=== PATIENT | female | born 1990 | race Caucasian/White ===

== ENCOUNTER 2024-01-24 10:40 | Emergency (ER) | payer OTHER, SELFPAY ==
[2024-01-24 10:54] VITALS: BP 100/71
[2024-01-24 11:41] VITALS: BMI 20.9
[2024-01-24 12:11] VITALS: BP 92/63
--- NOTE | 2024-01-24 12:36 | ED.GENMED ---
History of Present Illness
General
Chief Complaint: Skin Problem
Source: patient
Exam Limitations: none
Time Seen by Provider: 01/24/24 12:19
History of Present Illness
History of Present Illness:
33-year-old female presents with onset of fatigue myalgias headache back pain nausea around the same time she noticed an insect bite on the right knee last evening. She notes chills. She is healthy otherwise. She saw her family doctor today and
she was sent for further evaluation. She notes a sore insect bite to the medial right knee. She tried ibuprofen last night. No other complaints at this time
Phy Exam
Physical Exam
Physical Exam:
General: Well-appearing female no acute respiratory distress
HEENT: Normocephalic atraumatic
Heart: Regular rate and rhythm no murmurs
Lungs: Clear no wheeze or rales
Abdomen: Soft nontender nondistended guarding rebound normal bowel sounds mild bilateral costovertebral angle tenderness
Extremities: No cyanosis or edema
Skin: Circular area of erythema slightly tender to the touch with a dark spot in the middle. This is not an insect or tick remaining. This is slightly pruritic as well.
Course
Orders/Labs/Results
Orders:
Orders
01/24/24 12:30
0.9% Sodium Chloride 1000 ml [Nss] 1,000 ml IV BOLUS
Ketorolac [Toradol] 15 mg IV NOW STA
01/24/24 12:48
COVID-19 Antigen Urgent
Source: Nasal Swab
Complete Blood Count/With Diff Urgent
Comprehensive Metabolic Panel Urgent
Lyme Progressive Urgent
01/24/24 12:49
Urinalysis Reflex To Culture Urgent
Date Specimen was Collected: 01/24/24
Time Specimen was Collected: 12:40
Abnormal Lab Results
01/24/24
12:48
WBC 4.5 L 10^3/uL
(4.8-10.8)
Absolute Lymphs (auto) 0.8 L 10^3/uL
(1.2-3.4)
Lymphocytes % 17.3 L %
(20.5-51.1)
AST 37 H U/L
(14-36)
01/24/24 12:48
01/24/24 12:48
Vital Signs
Initial and Last Documented VS:
Initial Vital Signs
Temp Pulse Resp BP Pulse Ox
98.2 F 85 20 100/71 98
01/24/24 10:54 01/24/24 10:54 01/24/24 10:54 01/24/24 10:54 01/24/24 10:54
Last Documented Vital Signs
Temp Pulse Resp BP Pulse Ox
98.8 F 72 15 97/59 98
01/24/24 14:37 01/24/24 13:16 01/24/24 13:16 01/24/24 13:16 01/24/24 13:16
MDM/Problems Addressed
Differential Diagnosis Includes:
Myalgias fatigue nausea headache with insect bite to right knee. Question possible Lyme. Lyme test is pending. Will check COVID and urinalysis and do basic labs. Fluids and Toradol ordered.
*Critical Care Note
Total Time (30-74mins, 75-104mins- exclusive of procedures): Not Applicable
Update Note
Update Note:
Workup here negative including COVID test. Labs reviewed without clinically significant finding. Patient notes minimal improvement after fluids and Toradol. Recheck temperature is 98.8. Differential could include cellulitis from insect bite
versus inflammatory response versus viral illness versus Lyme. Lyme is pending. Will cover for doxycycline given her symptoms. Advise follow-up with family doctor
ED Attending Note
-
Portions of this chart may have been created with voice recognition software.� Occasional wrong word or��sound alike� substitutions may have occurred due to the inherent limitations of voice recognition software.
Discharge Plan
Departure
Patient Disposition: Home (Routine Discharge)
Date of Disposition: 01/24/24
Time of Disposition: 14:39
Patient with high blood pressure during this ER visit?: No
Discharge Problem:
Insect bite
Instructions: Cellulitis (Skin Infection), Adult (DC)
Prescriptions:
New
doxycycline hyclate 100 mg tablet
100 mg PO BID Qty: 14 0RF
Referrals:
Keke Poole, [Family Provider] -
Activity Restrictions/Additional Instructions:
Rest. Continue drinking plenty of fluids. Continue with ibuprofen or Tylenol for pain or fever. Use antibiotic as directed. You should receive a call if your Lyme test is positive. Follow-up with PMD otherwise
Interventions
Interventions:
*Risk Screen - Suicide Last Done: 01/24/24 11:40
*General Assessment Last Done: 01/24/24 12:26
*Neglect/Abuse Screening Last Done: 01/24/24 11:40
*ED COVID-19 Vaccine History Last Done: 01/24/24 11:40
ED-Skin Assessment Last Done: 01/24/24 11:40
Discharge Date and Time
Print Language: [id number]
[2024-01-24 12:56] LABS: % Basophils 0.2 % (0-2); % Immature Granulocytes 0.4 % (0-0.5); % Lymphocytes 17.3 % (20.5-51.1); % Monocytes 7.5 % (1.7-9.3); % Neutrophils 74.6 % (42.2-75.2); Absolute Lymphocytes 0.8 10^3/uL (1.2-3.4); Absolute Monocytes 0.3 10^3/uL (0.1-0.6); Absolute Neutrophils 3.4 10^3/uL (1.4-6.5); Hematocrit 41.7 % (37.0-47.0); Mean Corp Hgb Conc. 33.6 g/dL (33.0-37.0); Mean Corpuscular Hgb 29.9 pg (27.0-31.0); Mean Corpuscular Volume 88.9 fL (81.0-99.0); Mean Platelet Volume 10.4 fL (7.4-10.4); Nucleated Red Blood Cells % 0 %; Platelet Count 165 10^3/uL (130-400); Red Blood Cell Count 4.69 10^6/uL (4.20-5.40); White Blood Cell Count 4.5 10^3/uL (4.8-10.8)
[2024-01-24] MEDS: TORADOL 15 MG IV (12:56)
[2024-01-24] MEDS: NSS 1000 IV (12:56)
[2024-01-24 13:04] LABS: Urine Albumin Negative (Neg - Trace); Urine Bilirubin Negative (Negative); Urine Character Clear (Clear); Urine Color Yellow; Urine Glucose Negative (Negative); Urine Ketone Negative (Negative); Urine Leukocyte Negative (Negative); Urine Nitrite Negative (Negative); Urine Occult Blood Negative (Negative); Urine Urobilinogen Negative (Neg - 1+)
[2024-01-24 13:16] VITALS: BP 97/59
[2024-01-24 13:19] LABS: ALT (SGPT) 22 U/L (0-35); AST (SGOT) 37 U/L (14-36); Albumin 4.6 g/dl (3.5-5.0); Alkaline Phosphatase 67 U/L (38-126); Blood Urea Nitrogen 14 mg/dl (7-17); Calcium 9.5 mg/dl (8.4-10.2); Carbon Dioxide 27 mmol/L (22-30); Chloride 102 mmol/L (98-107); Estimated Creatinine Clearance 97 ml/min; Glucose 82 mg/dl (70-99); Potassium 3.8 mmol/L (3.5-5.1); Sodium 137 mmol/L (135-145); Total Bilirubin 0.8 mg/dl (0.2-1.3); Total Protein 7.4 g/dl (6.3-8.2); eGFR > 60.00
[2024-01-24 13:22] LABS: COVID-19 Antigen Negative (Negative)
[2024-01-24 15:39] LABS: HCG, Serum Qualitative Screen Negative
[2024-01-24 15:50] LABS: Lyme Antibody Screen, EIA Negative (Negative)
== END 2024-01-24 14:48 | disposition home or self-care (01) ==
LOC: EMR 10:40
PROVIDERS: Physician Assistant; EMERGENCY PHYSICIAN Emergency Medicine; FAMILY PHYSICIAN Family Medicine
DX: S80.261A Insect bite (nonvenomous), right knee, initial encounter (principal); W57.XXXA Bitten or stung by nonvenomous insect and other nonvenomous arthropods, initial encounter; R51.9 Headache, unspecified; R53.83 Other fatigue
CPT/HCPCS: 99283; 96374; 96361; 80053; 81003; 84703; 85025; 86618; 87811

== ENCOUNTER → 2024-07-21 08:23 | Outpatient (REF) | payer OTHER, SELFPAY | LOC: WDC 08:23 | PROVIDERS: ATTENDING PHYSICIAN Obstetrics & Gynecology | DX: N63.11 Unspecified lump in the right breast, upper outer quadrant (principal) | CPT/HCPCS: 76642 ==